=== PATIENT | female | born 1995 | race Caucasian/White ===

== ENCOUNTER 2022-07-22 15:07 | Inpatient (IN) | payer OTHER ==
[2022-07-22] VITALS (20 sets, daily range): BP systolic 113–153; BP diastolic 60–81
[~2022-07-22] VITALS: Ht 165.1 cm; Wt 88.6 kg
[2022-07-22] MEDS ORDERED: PRENMIS3 PO (15:35)
[2022-07-22] MEDS ORDERED: HOME MED LIST COMPLETE! XX SCH (15:40)
[2022-07-22] MEDS ORDERED: CARBOPROST TROMETHAMINE 250 MCG/ML AMP IM PRN (15:50)
[2022-07-22] MEDS ORDERED: LR 1,000 ML IV SCH (15:50)
[2022-07-22] MEDS ORDERED: LACTATED RINGER'S 1000 ML IV PRN (15:50)
[2022-07-22] MEDS ORDERED: METHYLERGONOVINE MALEATE 0.2MG/ML 1ML VIAL IM PRN (15:50)
[2022-07-22] MEDS ORDERED: OXYTOCIN DRIP 30 UNITS in IV 1 EA IV PRN (15:50)
[2022-07-22] MEDS ORDERED: TRANEXAMIC ACID INJection 1,000 MG in NS 100 ML IV PRN (15:50)
[2022-07-22 16:22] LABS: HEMATOCRIT 36.7 % (36.0-47.0); HEMOGLOBIN 12.7 g/dl (12.0-15.5); MEAN CORPUSCULAR HEMOGLOBIN 30.5 pg (27.0-33.0); MEAN CORPUSCULAR HGB CONC 34.6 g/dl (32.0-36.5); MEAN CORPUSCULAR VOLUME 88.2 fl (80.0-96.0); PLATELET COUNT, AUTOMATED 215 10^3/uL (150-450); RED BLOOD COUNT 4.16 10^6/uL (4.00-5.40); WHITE BLOOD COUNT 14.9 10^3/uL (4.0-10.0)
[2022-07-22] MEDS ORDERED: ePHEDrine SULFATE 25 MG/5 ML(5MG/ML) SYRINGE IVP PRN (17:50)
[2022-07-22] MEDS ORDERED: NALOXONE INJ 0.4MG/1ML VIAL IV PRN (17:50)
[2022-07-22] MEDS ORDERED: LR 500 ML IV PRN (17:50)
[2022-07-22] MEDS ORDERED: diphenhydrAMINE 50MG/ML VIAL IV PRN (17:50)
[2022-07-22] MEDS ORDERED: FENTANYL/ROPIVACAINE/NACL BAG 100 ML EPIDURAL SCH (17:50)
[2022-07-22] MEDS ORDERED: ONDANSETRON 4MG 2ML VIAL IV PRN ×2 (17:50→20:30)
[2022-07-22] MEDS ORDERED: EPIDURAL/PCA KEYS XX PRN (17:50)
[2022-07-22] MEDS ORDERED: DIBUCAINE 1% OINTMENT 30GM TOP PRN (20:30)
[2022-07-22] MEDS ORDERED: METHYLERGONOVINE MALEATE 0.2 MG TAB PO PRN (20:30)
[2022-07-22] MEDS ORDERED: MOM 30ML SUSPENSION UDC PO PRN (20:30)
[2022-07-22] MEDS ORDERED: RHOGAM 300MCG (1500IU) INJ IM SCH (20:30)
[2022-07-22] MEDS ORDERED: OXYTOCIN DRIP 30 UNITS in IV 1 EA IV SCH ×4 (20:30)
[2022-07-22] MEDS ORDERED: ACETAMINOPHEN TAB 650MG DOSE (2X325MG) PO PRN (20:30)
[2022-07-22] MEDS ORDERED: IBUPROFEN 600MG TAB PO PRN (20:30)
[2022-07-22] MEDS ORDERED: DOCUSATE SODIUM 100MG CAPSULE PO PRN (20:30)
[2022-07-23 06:00] VITALS: BP 113/55
[2022-07-23] MEDS: IBUPROFEN 800 MG TAB PO PRN ×2 (07:36→16:25)
[2022-07-23] MEDS: ACETAMINOPHEN 500 MG TAB PO PRN ×2 (09:52→20:55)
[2022-07-23] MEDS: PRENATAL VITAMINS CHEWABLE TABLET PO SCH (09:52)
[2022-07-23 18:00] VITALS: BP 125/73
[2022-07-24] MEDS: IBUPROFEN 800 MG TAB PO PRN (05:58)
[2022-07-24 06:00] VITALS: BP 119/73
[2022-07-24] MEDS: PRENATAL VITAMINS CHEWABLE TABLET PO SCH (08:03)
[2022-07-24] MEDS ORDERED: INFLUENZA QUADRIVALENT PF VACCINE 0.5ML SYRINGE IM.IMMUN ONE (09:00)
[2022-07-24] MEDS ORDERED: MEASLES,MUMPS,RUBELLA VACCINE INJ (MMR-II) SC.IMMUN ONE (09:00)
[2022-07-24] MEDS ORDERED: ACET1TAB55 PO (11:10)
[2022-07-24] MEDS ORDERED: COLA100C5 PO (11:10)
[2022-07-24] MEDS ORDERED: IBUP-1022 PO (11:10)
[2022-07-24] MEDS: ACETAMINOPHEN 500 MG TAB PO PRN (11:49)
== END 2022-07-24 12:30 | disposition home or self-care (01) | DRG 807 ==
LOC: M LDO 15:07 → M LDI 16:03 → M OBS 23:42
PROVIDERS: ADMIT Registered Nurse; ATTEND Obstetrics & Gynecology
PROC: 10E0XZZ Delivery of Products of Conception, External Approach (ICD-10-PCS; principal; 2022-07-22)
PROC: 0HQ9XZZ Repair Perineum Skin, External Approach (ICD-10-PCS; 2022-07-22)
DX: O48.0 Post-term pregnancy (principal); Z37.0 Single live birth; Z3A.40 40 weeks gestation of pregnancy; O69.1XX0 Labor and delivery complicated by cord around neck, with compression, not applicable or unspecified; O69.82X0 Labor and delivery complicated by other cord entanglement, without compression, not applicable or unspecified; O70.0 First degree perineal laceration during delivery